=== PATIENT | female | born 1955 | race Caucasian/White ===

== ENCOUNTER → 2018-11-08 | Outpatient (CLI) | payer BC ==
[~2018-11-08] MED LIST: GADOBUTROL 7.5 MMOL/7.5 ML (GADAVIST) VIAL IV ONE
[2018-11-08 12:28] LABS: CREATININE SERUM 1.06 MG/DL (0.60-1.30)
--- NOTE | 2018-11-08 13:00 | Diagnostic Imaging Report ---
PATIENT HISTORY: MRI SCREENING DUE TO PREVIOUS BRAIN SURGERY. TECHNIQUE: Two views of the skull. COMPARISON: None. FINDINGS: No acute fracture is seen in the skull. There are prior craniotomy changes in the right calvarium with fixation devices. These are typically MRI compatible. No unexpected metal foreign bodies are seen. There is extensive heterogeneity throughout the skull. IMPRESSION: 1. Right craniotomy changes with fixation devices. No unexpected metal foreign body is seen. 2. Marked heterogeneous density of the skull is nonspecific. This is likely due to diffuse osteopenia, although an infiltrative process is not excluded. Dictated by: Dictated on workstation # [id number]
--- NOTE | 2018-11-08 15:34 | Diagnostic Imaging Report ---
INDICATION: Hearing loss in the right ear for last couple of years. Patient has prior history of brain surgery. TECHNIQUE: Pre-and post intravenous contrast multiplanar and multisequence imaging of the brain and IACs was performed. COMPARISON: No prior studies are available for comparison. FINDINGS: Postsurgical changes of right temporoparietal craniotomy are noted. Encephalomalacia deep to the craniotomy site in the right posterior temporal lobe is seen. Significant periventricular and subcortical white matter changes are noted bilaterally, likely on the basis of chronic microvascular ischemia. No diffusion restriction is identified. The normal expected flow-voids within the carotid siphons are seen. Postcontrast images do demonstrate some minimal enhancement along the inferior margin of the surgical bed in the right posterior temporal lobe is best seen on coronal postcontrast images. In addition, there are slightly irregular and linear areas of enhancement in the right inferior cerebellar hemisphere, etiology indeterminate. This could potentially be on the basis of postsurgical versus post ischemic changes. Significant opacification of the right mastoid air cells is seen. This is primarily T2 intense although somewhat heterogeneous. The IACs are unremarkable. No CP angle mass is identified. Corpus callosum is unremarkable. Sella and parasellar structures are unremarkable. No hemorrhage is seen. IMPRESSION: 1. 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 There is some minimal enhancement along the inferior margin of the surgical bed, likely postsurgical. In addition, there is irregular enhancement in the inferior right cerebellar hemisphere. This could be on a postsurgical or post ischemic basis. A followup MRI in four to six weeks is recommended to confirm stability and/or resolution, unless patient's neurologic status changes before then in which imaging should be performed at that time. 2. Severe changes of chronic microvascular ischemia. 3. Opacified right mastoid air cells. This may be on the basis of mastoid effusion or mastoiditis. CT of the IACs may prove useful to evaluate for subtle destructive changes or coalescence. Dictated by: Dictated on workstation # [id number]
== END ==
LOC: RAD 11:49
PROVIDERS: ATTEND Otolaryngology Otolaryngology/Facial Plastic Surgery
DX: H91.8X1 Other specified hearing loss, right ear (principal); G93.89 Other specified disorders of brain; I67.82 Cerebral ischemia; Z98.890 Other specified postprocedural states
CPT/HCPCS: 36415; 70250; 70553; 82565; 84520